=== PATIENT | male | born 1985 | race Caucasian/White ===

== ENCOUNTER 2018-07-02 19:45 | Emergency (ER) | payer MEDICAID ==
--- NOTE | 2018-07-02 20:13 | Emergency Department Record ---
History of Present Illness - General Chief complaint: Extremity Problem Stated complaint: L FOOT TOES INFECTIONED Time Seen by Provider: 07/02/18 20:07 Source: Patient Mode of Arrival: Ambulatory - History of Present Illness Initial comments: About 10 days ago the patient state he (probably) broke his left great toe, injuring it on a stair about 10 days ago. The nail turned blue and the toe swelled up. He has been wearing a boot which is too tight, causing pain and now it is more swollen with drainage at edge of toenail. MD Complaint: Extremity pain, Extremity swelling Onset/Timin -: Days(s) Location: Left History of Same: No Radiation: Proximal Severity scale (1-10): 9 Quality: Aching Consistency: Constant, Getting worse Improves with: Nothing Worsens with: Palpation, Walking, Weight bearing Associated Symptoms: Denies other symptoms - Related Data Previous Rx's Medication Instructions Recorded Cephalexin [Keflex] 500 mg PO QID #39 cap 07/02/18 Allergies Allergy/AdvReac Type Severity Reaction Status Date / Time No Known Drug Allergies Allergy Verified 07/02/18 19:52 Travel Screening - Travel/Exposure Within Last 30 Days Have you traveled within the last 30 days?: No - Travel Symptoms Symptom Screening: None Review of Systems Reviewed: No additional complaints except as noted below Constitutional: Reports: As per HPI. Denies: Chills, Fever, Malaise, Night sweats, Weakness, Weight change Eyes: Reports: As per HPI. Denies: Eye discharge, Eye pain, Photophobia, Vision change ENT: Reports: As per HPI. Denies: Congestion, Dental pain, Ear pain, Epistaxis , Hearing loss, Throat pain Respiratory: Reports: As per HPI. Denies: Cough, Dyspnea, Hemoptysis, Stridor, Wheezes Cardiovascular: Reports: As per HPI. Denies: Arrhythmia, Chest pain, Dyspnea on exertion, Edema, Murmurs, Orthopnea, Palpitations, Paroxysmal nocturnal dyspnea, Rheumatic Fever, Syncope Endocrine: Reports: As per HPI. Denies: Fatigue, Heat or cold intolerance, Polydipsia, Polyuria Gastrointestinal: Reports: As per HPI. Denies: Abdominal pain, Constipation, Diarrhea, Hematemesis, Hematochezia, Melena, Nausea, Vomiting Genitourinary: Reports: As per HPI. Denies: Dysuria, Frequency, Hematuria, Incontinence, Retention, Testicular pain, Testicular mass, Urgency Musculoskeletal: Reports: As per HPI. Denies: Arthralgia, Back pain, Gout, Joint swelling, Myalgia, Neck pain Skin: Reports: As per HPI. Denies: Bruising, Change in color, Change in hair/ nails, Lesions, Pruritus, Rash Neurological: Reports: As per HPI. Denies: Abnormal gait, Confusion, Headache, Numbness, Paresthesias, Seizure, Tingling, Tremors, Vertigo, Weakness Psychiatric: Reports: As per HPI. Denies: Anxiety, Auditory hallucinations, Depression, Homicidal thoughts, Suicidal thoughts, Visual hallucinations Hematological/Lymphatic: Reports: As per HPI. Denies: Anemia, Blood Clots, Easy bleeding, Easy bruising, Swollen glands Past Medical History - SOCIAL HISTORY Smoking Status: Heavy tobacco smoker (>10/day) Alcohol Use: Rare Drug Use: None - RESPIRATORY Hx Respiratory Disorders: No - CARDIOVASCULAR Hx Cardio Disorders: No - NEURO Hx Neuro Disorders: No - GI Hx GI Disorders: No - Hx Genitourinary Disorders: No - ENDOCRINE Hx Endocrine Disorders: No - MUSCULOSKELETAL Hx Musculoskeletal Disorders: No - PSYCH Hx Psych Problems: No - HEMATOLOGY/ONCOLOGY Hx Hematology/Oncology Disorders: No Family Medical History Any Significant Family History?: No Family Hx Comment (NOT TO BE USED IN PLACE OF ITEMS BELOW): DENIES Physical Exam - General General Appearance: Alert, Oriented x3, Cooperative, Moderate distress, Anxious (patient appears to have an unknown chronic psychiatric illness) Limitations: Other (cognitive dysfunction with chronic anxiety) - Head Head exam: Normal inspection - Eye Eye exam: Normal appearance, PERRL, EOMI. negative: Conjunctival injection, Nystagmus Pupils: Normal accommodation - ENT ENT exam: Normal exam, Mucous membranes moist, Normal external ear exam, Normal orophraynx, TM's normal bilaterally Ear exam: Normal external inspection. negative: External canal tenderness Nasal Exam: Normal inspection. negative: Discharge, Sinus tenderness Mouth exam: Normal external inspection, Tongue normal Teeth exam: Normal inspection. negative: Dental caries Throat exam: Normal inspection. negative: Tonsillar erythema, Tonsillar exudate - Neck Neck exam: Normal inspection, Full ROM. negative: Tenderness - Respiratory Respiratory exam: Normal lung sounds bilaterally. negative: Respiratory distress - Cardiovascular Cardiovascular Exam: Regular rate, Normal rhythm, Normal heart sounds - GI/Abdominal GI/Abdominal exam: Soft, Normal bowel sounds. negative: Tenderness - Rectal Rectal exam: Deferred - exam: Deferred - Extremities Extremities exam: Normal inspection, Full ROM, Normal capillary refill, Tenderness (tenderness to left great toe which is erythematous and swollen around the nail. Old ecchymosis beneath nail, now faded to greenish color. ) - Back Back exam: Reports: Normal inspection, Full ROM. Denies: Muscle spasm, Rash noted, Tenderness - Neurological Neurological exam: Alert, CN II-XII intact, Normal gait, Oriented X3, Reflexes normal. negative: Motor sensory deficit - Psychiatric Psychiatric exam: Normal affect, Normal mood - Skin Skin exam: Dry, Intact, Normal color, Warm Course Vital Signs 07/02/18 19:55 Temperature 98.2 F Pulse Rate 115 H Respiratory 24 Rate Blood Pressure 161/106 Pulse Ox 100 - Reevaluation(s) Reevaluation #1: The patient is extremely anxious, and mom reports that [facility] in [place], [place]. He is refusing to allow me to give him a digital block and remove the toenail. He insists that he get "put completely out." He is willing, however, to see the health and physical education professor Dr. Cruz Wednesday morning as he is in our specialty clinic Wednesday, a little more than 24 hours from now. He states he will follow with him, will take his antibiotics, and his mother at the bedside will get him here. 07/02/18 21:03 07/02/18 21:24 Reevaluation #2: THE PATIENT IS REFUSING TO ALLOW ME TO REMOVE HIS TOENAIL. He agrees to see Dr Cruz. He is extremely anxious as a baseline per mother. She will get him to and from the appointment. 07/02/18 21:15 Medical Decision Making - Management Options MDM Management: Additional Work-up Planned (e.g. ADM/Transfer/OP Study) (Follow up with health and physical education professor Dr. Cruz Wednesday in [facility].) - Data Complexity MDM Data: X-Ray Ordered and/or Reviewed (Xray toe: Negative for fracture. ) Disposition Disposition: Discharge Clinical Impression: Toe infection Disposition: Home, Self-Care Condition: (1) Good Instructions: Paronychia (ED), Cellulitis (ED) Additional Instructions: Post op shoe to left foot. Elevate toe above heart. Take keflex 500mg every 6 hours until gone (10 days). Follow up Wednesday with health and physical education professor Dr. Cruz in [facility] as arranged. Warm soaks to toe 2-3 time daily. Take norco for severe pain every 6 hours. Tylenol alternated with ibuprofen as directed as needed for pain. Do not take norco and tylenol at the same times as norco contains tylenol. PCP referral list for follow up and routine care. Prescriptions: Cephalexin [Keflex] 500 mg PO QID #39 cap Quality - Quality Measures Quality Measures: N/A - Blood Pressure Screening Does Patient Have Any of the Following: No Blood Pressure Classification: Hypertensive Reading Systolic Measurement: 161 Diastolic Measurement: 106 Screening for High Blood Pressure: < Pre-Hypertensive BP, F/U Documented > [ [id number]] Pre-Hypertensive Follow-up Interventions: Follow-up with rescreen every year.
[2018-07-02] MEDS ORDERED: CEPHALEXIN 500 MG CAPSULE PO STA (20:48)
[2018-07-02] MEDS ORDERED: TRAMADOL HCL 50 MG TABLET PO ONE (20:53)
[2018-07-02] MEDS ORDERED: HYDROCODONE/APAP 5/325MG TABLET PO ONE (21:17)
[2018-07-02] MEDS ORDERED: METHYLPREDNISOLONE PF 125MG/VIAL IM ONE (21:26)
--- NOTE | 2018-07-04 09:03 | RADIOLOGY REPORT ---
EXAM: LEFT GREAT TOE HISTORY: INFECTION, QUESTION FRACTURE. TECHNIQUE: Three views of the left great toe were obtained. FINDINGS: There is predominant soft tissue swelling of the great toe. There is no evidence of underlying acute osseous abnormality. There is mild DJD of the first MTP joint. IMPRESSION: NO ACUTE OSSEOUS ABNORMALITY. [facility]OB [facility]BER: [id number] [facility]
== END 2018-07-02 21:39 | disposition home or self-care (01) ==
LOC: ER 19:45
DX: S99.922A Unspecified injury of left foot, initial encounter (principal); L03.032 Cellulitis of left toe; L23.7 Allergic contact dermatitis due to plants, except food; W22.8XXA Striking against or struck by other objects, initial encounter; F17.210 Nicotine dependence, cigarettes, uncomplicated
CPT/HCPCS: 73660; 96372; 99283; 99284; J2930